=== PATIENT | female | born 1965 | race Caucasian/White ===

== ENCOUNTER 2024-10-13 12:08 | Emergency (ER) | payer SELFPAY ==
[2024-10-13] MEDS: Triamcinolone Acetonide 40 MG/ML 1 ML SDV INJECT STA (13:04)
[2024-10-13] MEDS: Ketorolac 30 MG/ML SDV IM STA (13:04)
== END 2024-10-13 13:26 | disposition home or self-care (01) ==
LOC: MW.ED 12:08
DX: S39.012A Strain of muscle, fascia and tendon of lower back, initial encounter (principal); Z88.2 Allergy status to sulfonamides; Z75.8 Other problems related to medical facilities and other health care; X50.0XXA Overexertion from strenuous movement or load, initial encounter
CPT/HCPCS: 96372; 99283; J1885; J3301